=== PATIENT | female | born 1975 | race Caucasian/White ===

== ENCOUNTER 2016-07-12 14:30 | Emergency (ER) | payer MEDICAID ==
[2016-07-12 14:45] VITALS: TEMP 97.9
--- NOTE | 2016-07-12 15:39 | EDPHY ---
H & P Stated Complaint: sacral back pain, recent DJD, incontinent, no trauma. Time Seen by Provider: 07/12/16 15:39 - Personal History LMP (Females 10-55): Hysterectomy Current Tetanus/Diphtheria Vaccine: Unsure Current Tetanus Diphtheria and Acellular Pertussis (TDAP): Unsure - Medical/Surgical History Hx Asthma: No Hx Chronic Respiratory Disease: No Hx Diabetes: No Hx Cardiac Disease: Yes Hx Renal Disease: No Hx Cirrhosis: No Hx Alcoholism: No Hx HIV/AIDS: No Hx Splenectomy or Spleen Trauma: No Other PMH: Hysterectomy-Uterine CA, CHF post delivery. - Social History Smoking Status: Heavy smoker Constitutional: Initial Vital Signs Temperature (C) 36.6 C 07/12/16 14:40 Heart Rate 101 H 07/12/16 14:40 Respiratory Rate 16 07/12/16 14:40 Blood Pressure 145/101 H 07/12/16 14:40 O2 Sat (%) 100 07/12/16 14:40 O2 Delivery Mode Room Air Allergies/Adverse Reactions: ceftriaxone sodium [From Rocephin] Allergy (Severe, Verified 07/12/16 14:45) Swelling/neck,face,throat guaifenesin [From Entex T] Allergy (Intermediate, Verified 07/12/16 14:45) Vomiting pseudoephedrine HCl [From Entex T] Allergy (Intermediate, Verified 07/12/16 14: 45) Vomiting Home Medications: Medication Instructions Recorded Lisinopril 07/12/16 Medical Decision Making ED Course/Re-evaluation: CHIEF COMPLAINT: Progressive lower back pain HISTORY OF PRESENT ILLNESS: This patient is a 40 year old female who presents to the Emergency Department complaining of severe low back pain beginning 9-10 days prior to arrival and worsening over time. She was seen at [facility] when her symptoms first presented and was treated with Flexeril, steroids, and lidocaine patches and discharged home. She had an MRI of lumbar spine indicated arthritis and degenerative disc disease. She was able to manage the pain using these until today when her pain presented more acutely. Today, she describes her pain as localized to her lower back and radiating to her anterior thighs with associated urinary incontinence twice today. She has been unable to pass a bowel movement since symptoms first presented. She denies trauma to her lower back. No pertinent medical history. REVIEW OF SYSTEMS: A 10 point review of systems was performed and is negative with the exception of the elements mentioned in the history of present illness. PHYSICAL EXAM: HR 101, BP 145/101, O2 Sat 100%, RR 16. Temp noted General Appearance: Alert, well hydrated, appropriate, and non-toxic appearing. Head: Atraumatic without scalp tenderness or obvious injury Eyes: Pupils equal, round, reactive to light and accommodation, EOMI, no trauma , no injection. Ears: Clear bilaterally, no perforation, normal landmarks Nose: Atraumatic, no rhinorrhea, clear. Throat: There is no erythema or exudates, no lesions, normal tonsils, mucus membranes moist. Neck: Supple, 2+ carotid upstroke, nontender, no lymphadenopathy. Respiratory: No retractions, no distress, no wheezes, and no accessory muscle use. Lungs are clear to auscultation bilaterally. Cardiovascular: Regular rate and rhythm, no murmurs, rubs, or gallops. Bilateral carotid, radial, dorsalis pedis, and posterior tibial pulses intact. Good capillary refill all extremities. Gastrointestinal: Abdomen is soft, nontender, non-distended, no masses, no rebound, no guarding, no peritoneal signs. Musculoskeletal: Normal active ROM of all extremities, atraumatic. Neurological: Alert, appropriate, and interactive. The patient has normal DTRs and non-focal cranial nerves, motor, sensory, and cerebellar exam. Skin: No rashes, good turgor, no nodules on palpation. Past medical history: Denies. Past surgical history: Hysterectomy Family history: Non-contributory Social history: Works as a house parent. No alcohol use. at bedside. DIAGNOSTICS/PROCEDURES/CRITICAL CARE TIME: Study: MRI of the lumbar spine Indication: Progressive lower back pain, bilateral radiculopathy, Results: MRI with and without contrast of the lumbar spine was obtained. The results of the study are: 1. Widely patent central canal. No acute disk herniation, central canal or neural foraminal stenosis, or cord compression. 2. L4-L5: Minimal disk desiccation and posterior disk bulge with associated annulus tear. The study was read by the radiologist, Dr. Mario Callaway. I viewed the images myself on the PACS system. DIFFERENTIAL DIAGNOSIS: The differential diagnosis for the patient's back pain included but was not limited to musculoskeletal pain, epidural abscess, herniated disk, spinal fracture, and intra-abdominal causes including urinary system. MEDICAL DECISION MAKING: This patient is a 40 year old female who presents complaining of progressive lower back pain with bilateral radiculopathy and urinary incontinence first presenting 9-10 days prior to arrival. Her presentation is suggestive of cauda equina syndrome, though she reports that she had an MRI at [facility] when her symptoms first presented which was negative for acute process including herniated disc. Despite this, her symptoms have continued to progress. She has positive leg raise bilaterally on exam and appears to be in severe pain. Will proceed with MRI with and without IV contrast of the lumbar spine. Will also obtain urine to rule out UTI. IV established. 30mg IV Toradol, 1mg IV Dilaudid, and 4mg IV Zofran administered.. Labs obtained and are unremarkable. Additional 1mg IV Dilaudid administered for persistent pain. - Data Points Laboratory Results: Laboratory Results 07/12/16 15:49 07/12/16 16:05 07/12/16 07/12/16 07/12/16 18:55 16:05 15:50 WBC RBC Hgb Hct MCV MCH MCHC RDW Plt Count MPV Neut % (Auto) Lymph % (Auto) [place] % (Auto) Eos % (Auto) Baso % (Auto) Nucleat RBC Rel Count Absolute Neuts (auto) Absolute Lymphs (auto) Absolute Monos (auto) Absolute Eos (auto) Absolute Basos (auto) Absolute Nucleated RBC Immature Gran % Immature Gran # PT 13.3 SEC SEC (12.0-15.0) INR 1.02 (0.83-1.16) APTT 26.9 SEC SEC (23.0-38.0) Sodium 141 mEq/L mEq/L (134-144) Potassium 3.5 mEq/L mEq/L (3.5-5.2) Chloride 107 mEq/L mEq/L (97-110) Carbon Dioxide 24 mEq/l mEq/l (22-31) Anion Gap 10 mEq/L mEq/L (8-16) BUN 14 mg/dL mg/dL (7-23) Creatinine 0.6 mg/dL mg/dL (0.6-1.0) Estimated GFR > 60 Glucose 84 mg/dL mg/dL (70-100) Calcium 9.1 mg/dL mg/dL (8.5-10.4) Urine Color YELLOW Urine Appearance HAZY Urine pH 5.0 (5.0-7.5) Ur Specific [place] 1.024 (1.002-1.030) Urine Protein NEGATIVE (NEGATIVE) Urine Ketones NEGATIVE (NEGATIVE) Urine Blood NEGATIVE (NEGATIVE) Urine Nitrate NEGATIVE (NEGATIVE) Urine Bilirubin NEGATIVE (NEGATIVE) Urine Urobilinogen NEGATIVE EU EU (0.2-1.0) Ur Leukocyte Esterase NEGATIVE (NEGATIVE) Ur Culture Indicated? NOT INDICATED (NI) Urine Glucose NEGATIVE (NEGATIVE) 07/12/16 15:49 WBC 8.72 10^3/uL 10^3/uL (3.80-9.50) RBC 4.76 10^6/uL 10^6/uL (4.18-5.33) Hgb 14.9 g/dL g/dL (12.6-16.3) Hct 42.1 % % (38.0-47.0) MCV 88.4 fL fL (81.5-99.8) MCH 31.3 pg pg (27.9-34.1) MCHC 35.4 g/dL g/dL (32.4-36.7) RDW 13.2 % % (11.5-15.2) Plt Count 289 10^3/uL 10^3/uL (150-400) MPV 8.9 fL fL (8.7-11.7) Neut % (Auto) 54.8 % % (39.3-74.2) Lymph % (Auto) 32.0 % % (15.0-45.0) [place] % (Auto) 7.5 % % (4.5-13.0) Eos % (Auto) 2.5 % % (0.6-7.6) Baso % (Auto) 0.7 % % (0.3-1.7) Nucleat RBC Rel Count 0.0 % % (0.0-0.2) Absolute Neuts (auto) 4.78 10^3/uL 10^3/uL (1.70-6.50) Absolute Lymphs (auto) 2.79 10^3/uL 10^3/uL (1.00-3.00) Absolute Monos (auto) 0.65 10^3/uL 10^3/uL (0.30-0.80) Absolute Eos (auto) 0.22 10^3/uL 10^3/uL (0.03-0.40) Absolute Basos (auto) 0.06 10^3/uL 10^3/uL (0.02-0.10) Absolute Nucleated RBC 0.00 10^3/uL 10^3/uL (0-0.01) Immature Gran % 2.5 % H % (0.0-1.1) Immature Gran # 0.22 10^3/uL H 10^3/uL (0.00-0.10) PT INR APTT Sodium Potassium Chloride Carbon Dioxide Anion Gap BUN Creatinine Estimated GFR Glucose Calcium Urine Color Urine Appearance Urine pH Ur Specific [place] Urine Protein Urine Ketones Urine Blood Urine Nitrate Urine Bilirubin Urine Urobilinogen Ur Leukocyte Esterase Ur Culture Indicated? Urine Glucose Medications Given: Discontinued Medications Hydromorphone HCl (Dilaudid) 1 mg IVP EDNOW ONE Stop: 07/12/16 15:51 Last Admin: 07/12/16 16:10 Dose: 1 mg Hydromorphone HCl (Dilaudid) 1 mg IVP EDNOW ONE Stop: 07/12/16 18:34 Last Admin: 07/12/16 18:34 Dose: 1 mg Ketorolac Tromethamine (Toradol) 30 mg IVP EDNOW ONE Stop: 07/12/16 15:50 Last Admin: 07/12/16 16:09 Dose: 30 mg Ondansetron HCl (Zofran) 4 mg IVP EDNOW ONE Stop: 07/12/16 15:50 Last Admin: 07/12/16 16:09 Dose: 4 mg Departure - Departure Disposition: Home, Routine, Self-Care Clinical Impression: Low back pain Qualifiers: Chronicity: acute Back pain laterality: unspecified Sciatica presence: without sciatica Qualified Code(s): M54.5 - Low back pain Condition: Good Instructions: Chronic Back Pain (ED) Additional Instructions: Take Tylenol and Ibuprofen, alternating very 4-6 hours, as needed for pain. Follow-up with a primary care provider for further evaluation. Return to the Emergency Department with fever and chills, blood in urine, uncontrollable pain, or other serious concerns. Referrals: [facility] [Outside] - As per Instructions Report Scribed for: Yaniv Toussaint Report Scribed by: Latosha Cohen Date of Report: 07/12/16 Time of Report: 15:44
[2016-07-12] MEDS ORDERED: ONDANSETRON 4 MG/2 ML VIAL IVP ONE (15:49)
[2016-07-12] MEDS ORDERED: KETOROLAC 30 MG/1 ML SDV IVP ONE (15:49)
[2016-07-12] MEDS ORDERED: HYDROmorphONE/DILAUDID 1 MG/ML SYR IVP ONE ×2 (15:50→18:33)
[2016-07-12 16:16] LABS: % IMMATURE GRANULYOCYTES 2.5 % (0.0-1.1); ABSOLUTE IMMATURE GRANULOCYTES 0.22 10^3/uL (0.00-0.10); ADD DIFF? NO; ADD MORPH? NO; ADD SCAN? NO; ATYPICAL LYMPHOCYTE FLAG 10 (0-99); FRAGMENT RBC FLAG 0 (0-99); HEMATOCRIT 42.1 % (38.0-47.0); HEMOGLOBIN 14.9 g/dL (12.6-16.3); LEFT SHIFT FLG 20 (0-99); LIPEMIA HEMOLYSIS FLAG 90 (0-99); MEAN CELL HEMOGLOBIN 31.3 pg (27.9-34.1); MEAN CELL HEMOGLOBIN CONCENTR. 35.4 g/dL (32.4-36.7); MEAN CELL VOLUME 88.4 fL (81.5-99.8); MEAN PLATELET VOLUME 8.9 fL (8.7-11.7); PLATELET CLUMPS FLAG 20 (0-99); PLATELET COUNT 289 10^3/uL (150-400); RED BLOOD CELL COUNT 4.76 10^6/uL (4.18-5.33); RED CELL DISTRIBUTION WIDTH 13.2 % (11.5-15.2)
[2016-07-12 16:29] LABS: INR 1.02 (0.83-1.16); PROTIME(PATIENT) 13.3 SEC (12.0-15.0)
[2016-07-12 16:30] LABS: APTT 26.9 SEC (23.0-38.0)
[2016-07-12 16:36] LABS: ANION GAP 10 mEq/L (8-16); CALCIUM 9.1 mg/dL (8.5-10.4); CARBON DIOXIDE 24 mEq/l (22-31); CHLORIDE 107 mEq/L (97-110); CREATININE 0.6 mg/dL (0.6-1.0); GLOMERULAR FILTRATION RATE > 60; GLUCOSE 84 mg/dL (70-100); POTASSIUM 3.5 mEq/L (3.5-5.2); SODIUM 141 mEq/L (134-144)
[2016-07-12] MEDS ORDERED: HYDROmorphONE/DILAUDID 1 MG/ML SYR ONE (17:43)
[2016-07-12] MEDS ORDERED: GADOBUTROL 10 ML VIAL IVP ONE (18:05)
[2016-07-12 19:06] LABS: COLOR YELLOW; LEUKOCYTE ESTERASE,URINE NEGATIVE (NEGATIVE); NITRITE,URINE NEGATIVE (NEGATIVE)
[2016-07-12 19:30] VITALS: BP 152/93; PULSE 93; RESP 16; O2SAT 97
== END 2016-07-12 19:28 | disposition home or self-care (01) ==
DX: M54.5 Low back pain (principal); I50.9 Heart failure, unspecified; F17.200 Nicotine dependence, unspecified, uncomplicated; Z85.41 Personal history of malignant neoplasm of cervix uteri
CPT/HCPCS: 96374; A9585; J1170; J1885; J2405